=== PATIENT | female | born 1985 | race American Indian/Alaskan Native ===

== ENCOUNTER 2018-04-26 10:05 | Emergency (ER) | payer MEDICAID ==
[2018-04-26 10:22] VITALS: BP 143/83; PULSE 76; RESP 20; TEMP 98.5; O2SAT 97
[2018-04-26 11:13] LABS: HCG,QUALITATIVE URINE NEGATIVE (NEGATIVE)
[2018-04-26 11:14] LABS: URINE BILIRUBIN NEGATIVE (NEGATIVE); URINE BLOOD NEGATIVE (NEGATIVE); URINE CLARITY Clear (Clear); URINE COLOR Yellow (YELLOW); URINE GLUCOSE (UA) NORMAL (Normal); URINE LEUKOCYTE ESTERASE NEG Leu/uL (Negative); URINE PROTEIN NEGATIVE (NEGATIVE); URINE UROBILINOGEN NORMAL mg/dL (0.2-1.0)
--- NOTE | 2018-04-26 11:17 | C.PDOC ---
History Of Present Illness 32 y/o female presents to the ER complaining of cramping lower abdominal pain which has been present on/off for the past 1 month. Patient states that the pain radiates to the back. Patient is unsure if she is . She admits to diet indiscretions. Denies having fever, chills, nausea,vomiting, dysuria, and hematuria. Time Seen by Provider: 04/26/18 10:32 Chief Complaint (Nursing): Abdominal Pain History Per: Patient History/Exam Limitations: no limitations Onset/Duration Of Symptoms: Days Current Symptoms Are (Timing): Still Present Severity: Moderate Past Medical History Reviewed: Historical Data, Nursing Documentation, Vital Signs Vital Signs: Last Vital Signs Temp 98.5 F 04/26/18 10:19 Pulse 76 04/26/18 10:19 Resp 20 04/26/18 10:19 BP 143/83 04/26/18 10:19 Pulse Ox 97 04/26/18 10:19 - Medical History PMH: Asthma Other Surgeries: Hx of surgeries Family History: States: No Known Family Hx - Social History Hx Tobacco Use: No Hx Alcohol Use: No Hx Substance Use: No - Immunization History Hx Tetanus Toxoid Vaccination: No Hx Influenza Vaccination: No Hx Pneumococcal Vaccination: No Review Of Systems Except As Marked, All Systems Reviewed And Found Negative. Constitutional: Negative for: Fever, Chills Gastrointestinal: Positive for: Abdominal Pain. Negative for: Nausea, Vomiting Genitourinary: Negative for: Dysuria, Hematuria Physical Exam - Physical Exam Appears: Non-toxic, No Acute Distress Skin: Normal Color, Warm, Dry Head: Atraumatic, Normacephalic Eye(s): bilateral: Normal Inspection Nose: Normal Oral Mucosa: Moist Neck: Supple Chest: Symmetrical Cardiovascular: Rhythm Regular Respiratory: Normal Breath Sounds, No Rales, No Rhonchi, No Wheezing Gastrointestinal/Abdominal: Soft, No Tenderness, No Guarding, No Rebound, Other (obese, alternating dull to percussion and tympanic to percussion) Neurological/Psych: Oriented x3, Normal Speech ED Course And Treatment O2 Sat by Pulse Oximetry: 97 (RA) Pulse Ox Interpretation: Normal Progress Note: UA and HCG,Qual. ordered. Patient declined to have further testing done. Medical Decision Making Medical Decision Making: chronic constipation, diet indiscretion UA/preg neg No concerning warning signs to warrant further eval at this time outpatient f/u for primary care issues Disposition Doctor Will See Patient In The: Office Counseled Patient/Family Regarding: Studies Performed, Diagnosis - Disposition Referrals: [facility] [Outside] [facility][MD] [facility] [Outside] [facility] [Outside] [facility] [Outside] Ryan Sun MD [Medical Doctor] - Disposition: HOME/ ROUTINE Disposition Time: 11:17 Condition: GOOD Additional Instructions: urinalysis and tests NEGATIVE today dietary hygiene outpatient follow-up in our [facility] and [facility] Call for an appt. Instructions: Constipation, Adult (DC), Gas and Bloating Forms: [employer] (Mongolian) - Clinical Impression Clinical Impression: Abdominal pain, colicky - Scribe Statement The provider has reviewed the documentation as recorded by the [address] Provider Attestation: All medical record entries made by the Scribe were at my direction and personally dictated by me. I have reviewed the chart and agree that the record accurately reflects my personal performance of the history, physical exam, medical decision making, and the department course for this patient. I have also personally directed, reviewed, and agree with the discharge instructions and disposition.
== END 2018-04-26 11:51 | disposition home or self-care (01) ==
LOC: C.ER 10:05
DX: R10.30 Lower abdominal pain, unspecified (principal)